=== PATIENT | female | born 1990 ===

== ENCOUNTER 2020-12-19 10:55 | Inpatient (IN) | payer MEDICAID ==
[~2020-12-19] VITALS: Ht 167.6 cm; Wt 54.4 kg
[2020-12-19] MEDS ORDERED: WITCH HAZEL-GLYCERIN PAD TOP PRN (11:15)
[2020-12-19] MEDS ORDERED: LACT. RINGERS/OXYTOCIN 20UNITS 1,000 ML IV SCH (11:15)
[2020-12-19] MEDS ORDERED: LACTATED RINGER'S 1,000 ML IV SCH (11:15)
[2020-12-19] MEDS ORDERED: LACT. RINGERS/OXYTOCIN 20UNITS 500 ML IV ONE ×2 (11:15→11:45)
[2020-12-19] MEDS ORDERED: miSOPROStol 100 mcg TAB SL PRN (11:15)
[2020-12-19] MEDS ORDERED: LIDOCAINE 2%HCL (LOCAL ANESTH.) INJ 20ML MDV IJ PRN (11:15)
[2020-12-19] MEDS ORDERED: miSOPROStol 100 mcg TAB PR PRN (11:15)
[2020-12-19] MEDS ORDERED: DERMOPLAST 60ML BOTTLE TOP PRN (11:15)
[2020-12-19] MEDS ORDERED: CARBOPROST TROMETHAMINE 250 MCG/1ML VIAL IM PRN (11:15)
[2020-12-19] MEDS ORDERED: METHYLERGONOVINE MALEATE 0.2 MG/ML AMP IM PRN (11:15)
[2020-12-19] MEDS ORDERED: PENICILLIN G POT 5MIL/D5 50ML 50 ML IV ONE (11:15)
[2020-12-19] MEDS ORDERED: PHISODERM TOP SOLN 240ML BTL TOP PRN (11:15)
[2020-12-19 11:36] LABS: Basophils # (auto) 0 10 ^3/uL (0-0.2); Basophils % (auto) 0.9 % (0.0-2.0); Eosinophils # (auto) 0.1 10 ^3/uL (0-0.8); Eosinophils % (auto) 1.4 % (0.0-7.0); Hematocrit 29.6 % (36.0-46.0); Hemoglobin 9.9 g/dL (12.2-16.2); Lymphocytes % (auto) 20.1 % (10.0-50.0); Mean Corpuscular Hgb Conc. 33.6 g/dL (32.0-36.0); Mean Corpuscular Volume 86.3 fL (80.0-100.0); Monocytes # (auto) 0.3 10 ^3/uL (0-1.3); Monocytes % (auto) 6.7 % (0.0-12.0); Neutrophils # (auto) 3.4 10 ^3/uL (1.6-8.6); Neutrophils % (auto) 70.9 % (37.0-80.0); Nucleated Red Blood Cells % 0.1 %; Red Blood Cells 3.43 10^6/uL (4.0-5.20); Red Cell Distribution Width 13.3 % (11.8-14.3); White Blood Cell 4.8 10^3/uL (4.4-10.8)
[2020-12-19 11:52] LABS: INR 0.95 (0.9-1.15); Partial Thromboplastin Time 25.4 sec (23.6-33.0)
[2020-12-19 11:56] LABS: Potassium 3.3 mmol/L (3.5-5.1)
[2020-12-19] MEDS ORDERED: BUTORPHANOL TARTRATE 2 MG/1 ML VIAL IV ONE (12:00)
[2020-12-19 12:04] LABS: Albumin 2.6 g/dL (3.4-5.0); BUN/Creatinine Ratio 11.5; Bilirubin, Total 0.4 mg/dL (0.2-1.0); Calcium 8.4 mg/dL (8.5-10.1); Total Protein 6.3 g/dL (6.4-8.2); Uric Acid 3.9 mg/dL (2.6-6.0)
[2020-12-19 12:32] LABS: Alcohol, Urine < 3.0 mg/dL (0-10); Amphetamine Screen, Urine NEGATIVE (NEGATIVE); Barbiturate Scree,Urine NEGATIVE (NEGATIVE); Benzodiazephine Screen, Urine NEGATIVE (NEGATIVE); Cannabinoid Screen, Urine NEGATIVE (NEGATIVE); Cocaine Screen, Urine NEGATIVE (NEGATIVE); Opiate Scree,Urine NEGATIVE (NEGATIVE); Phencyclidine Screen, Urine NEGATIVE (NEGATIVE)
[2020-12-19 12:57] LABS: Urine Bacteria NONE SEEN /hpf (None Seen); Urine Blood 3+ /uL (Negative); Urine Mucus FEW (None Seen); Urine Specific Gravity 1.027 (1.001-1.035); Urine WBC 1 /hpf (0 - 5)
[2020-12-19] MEDS ORDERED: PENICILLIN G POTASSIUM 2,500,000 UNITS in D5W 5% 50 ML IV SCH (15:15)
[2020-12-19] MEDS ORDERED: IBUPROFEN 600 MG TAB PO ONE (15:46)
[2020-12-19] MEDS: IBUPROFEN 600 MG TAB PO PRN ×2 (15:51→23:52)
[2020-12-19 16:16] VITALS: BP 120/58
[2020-12-19] MEDS ORDERED: ACETAMINOPHEN 325 MG TAB PO ONE (18:34)
[2020-12-19] MEDS: ACETAMINOPHEN 325 MG TAB PO PRN (18:36)
[2020-12-19 19:25] VITALS: BP 116/62
[2020-12-19 23:30] VITALS: BP 103/53
[2020-12-20 03:30] VITALS: BP 102/61
[2020-12-20] MEDS: IBUPROFEN 600 MG TAB PO PRN ×3 (04:24→12:11)
[2020-12-20 05:06] LABS: RPR Non Reactive (Non Reactive)
[2020-12-20] MEDS ORDERED: POTASSIUM CHL 20 Meq TABLET PO ONE (06:30)
[2020-12-20 07:15] VITALS: BP 102/52
[2020-12-20] MEDS ORDERED: FERROUS SULFATE 325mg EC TAB PO SCH (10:00)
[2020-12-20] MEDS ORDERED: PREN-96 PO (10:31)
[2020-12-20 11:30] VITALS: BP 106/70
[2020-12-20] MEDS: ACETAMINOPHEN 325 MG TAB PO PRN (14:42)
[2020-12-20 15:00] VITALS: BP 101/70
== END 2020-12-20 15:51 | disposition home or self-care (01) | DRG 560 ==
LOC: LDRP 10:55 → OBSVTOIN 11:07 → LDRP 11:08
PROVIDERS: ADMIT Obstetrics & Gynecology Obstetrics; ATTEND Obstetrics & Gynecology Obstetrics
PROC: 10E0XZZ Delivery of Products of Conception, External Approach (ICD-10-PCS; principal; 2020-12-19)
DX: O80 Encounter for full-term uncomplicated delivery (principal); Z37.0 Single live birth; Z20.822 Contact with and (suspected) exposure to COVID-19; Z3A.37 37 weeks gestation of pregnancy
CPT/HCPCS: 36415; 59409; 80053; 80307; 81001; 84550; 85025; 85610; 85730; 86592; 86703; 86762; 86850; 86900; 86901; 87340; 87426; 94760; 96360; 96366; 96372; G0378; J2540; J2590; J7060